=== PATIENT | female | born 2000 | race American Indian/Alaskan Native ===

== ENCOUNTER 2018-03-17 12:09 | Emergency (ER) | payer SELFPAY ==
[2018-03-17 13:10] LABS: Bilirubin,Urine NEG (Negative); Blood,Urine NEG (Negative); Color,Urine Yellow (Yellow); Mucus,Urine 1+ /HPF; Protein,Urine <15 mg/dL mg/dL (Negative); Urobilinogen,Urine < 2.0 mg/dL (<2.0)
[2018-03-17 13:12] LABS: HCG Qualitative,Urine Negative (Negative)
[2018-03-17] MEDS ORDERED: ZOFRAN ODT PO ONE (13:55)
--- NOTE | 2018-03-17 13:58 | Emergency Department Report ---
HPI - General Chief Complaint: Urogenital-Female Time Seen by Provider: 03/17/18 12:58 - HPI HPI: 18-year-old female presents to the ED complaining of nausea and vomiting for the past 2 days. Patient states that she is also experiencing some low pelvic c ramping like she is about to start her period. Patient states she does note she is she's been having progressive symptoms. She denies dysuria, vaginal bleeding, vaginal discharge or any other problems. ED Past Medical Hx - Past Medical History Previous Medical History?: No - Surgical History Past Surgical History?: No - Social History Smoking Status: Never Smoker Substance Use Type: Alcohol - Medications Home Medications: Home Medications Medication Instructions Recorded Confirmed Last Taken Type Ondansetron [Zofran ODT TAB] 8 mg PO TID #20 tab.rapdis 03/17/18 Unknown Rx ED Review of Systems ROS: Stated complaint: ABD PAIN/N/V/UNBALE TO EAT Other details as noted in HPI Comment: All other systems reviewed and negative Physical Exam - Physical Exam Vital Signs: Vital Signs 03/17/18 12:44 Temperature 98.8 F Pulse Rate 86 Respiratory 18 Rate Blood Pressure 119/62 O2 Sat by Pulse 99 Oximetry Physical Exam: GENERAL: Alert and oriented x3, no apparent distress, Normal Gait, atraumatic. MOUTH:Mouth is well hydrated and without lesions. Tonsils nonerythematous or swollen, Uvula midline, Tongue not elevated. Mucous membranes are moist. Posterior pharynx clear, no exudate or lesions. Patent airways. LUNGS: Symetrical with respiration, , CTAB. HEART: S1, S2 present, regular rate and rhythm without murmur, no rubs, no gallops. ABDOMEN: No organomegaly was noted,Positive bowel sounds, soft, and non- distended. Nontender to palpation on all Quadrants, NO CVA tenderness. SKIN: Warm and dry, No lesions, No ulceration or induration present. ED Course Vital Signs 03/17/18 12:44 Temperature 98.8 F Pulse Rate 86 Respiratory 18 Rate Blood Pressure 119/62 O2 Sat by Pulse 99 Oximetry ED Medical Decision Making - Medical Decision Making 18-year-old female presents with appropriate cramping and thinking that she was Urinalysis negative, urine test negative Discussed findings with patient. Discussed patient to follow up with primary care physician and take another home test that she has not gotten her menstrual cycle in 2 weeks. Critical care attestation.: If time is entered above; I have spent that time in minutes in the direct care of this critically ill patient, excluding procedure time. ED Disposition Clinical Impression: Nausea & vomiting Disposition: DC-01 TO HOME OR SELFCARE Is pt being admited?: No Does the pt Need Aspirin: No Condition: Stable Instructions: Acute Nausea and Vomiting (ED) Additional Instructions: Make sure to follow up with the primary care physician as discussed. Take all your medications as you've been prescribed. If you have any worsening symptoms or develop new symptoms please return to ED immediately. Prescriptions: Ondansetron [Zofran ODT TAB] 8 mg PO TID #20 tab.josedis Referrals: PRIMARY CARE, [Referring] - 3-5 Days [facility] [Outside] - 3-5 Days [facility] [Outside] - 3-5 Days Forms: Work/School Release Form(ED) Time of Disposition: 13:59
[2018-03-17 16:07] VITALS: BP 117/74
== END 2018-03-17 14:33 | disposition home or self-care (01) ==
LOC: ED 12:09
DX: R11.2 Nausea with vomiting, unspecified (principal); R10.2 Pelvic and perineal pain; Z88.1 Allergy status to other antibiotic agents
CPT/HCPCS: 81001; 81025; Q0162

== ENCOUNTER 2018-06-10 05:27 | Emergency (ER) | payer SELFPAY | END 2018-06-10 05:36 | disposition left against medical advice (07) | LOC: ED 05:27 | DX: M79.645 Pain in left finger(s) (principal); Z53.21 Procedure and treatment not carried out due to patient leaving prior to being seen by health care provider ==